=== PATIENT | female | born 1995 | race Caucasian/White ===

== ENCOUNTER 2017-07-11 19:55 | Emergency (ER) | payer OTHER ==
[~2017-07-11] VITALS: Ht 170.1 cm; Wt 90.7 kg
[~2017-07-11 19:55] MED LIST: CIPRO250 MG PO; CLARITIN10 MG PO; COMBIVENT1 ARO IH; FLUVOXAMINE50 MG PO; HYDROCODONE BIT1 T11 PO; MOTRIN600 MG PO; MOTRIN800 MG PO; NKHM; ULTRAM50 MG PO
[2017-07-11 20:55] VITALS: BP 131/69
== END 2017-07-11 21:44 | disposition home or self-care (01) ==
LOC: ED 19:55
DX: S16.1XXA Strain of muscle, fascia and tendon at neck level, initial encounter (principal); V49.9XXA Car occupant (driver) (passenger) injured in unspecified traffic accident, initial encounter; Y93.89 Activity, other specified; Y92.89 Other specified places as the place of occurrence of the external cause; Y99.8 Other external cause status

== ENCOUNTER 2017-10-20 11:22 | Emergency (ER) | payer OTHER ==
[~2017-10-20] VITALS: Ht 157.4 cm; Wt 88.5 kg
[2017-10-20 11:26] VITALS: BP 134/71
[2017-10-20 12:11] LABS: BILIRUBIN NEGATIVE (NEGATIVE); BLOOD NEGATIVE (NEGATIVE); CLARITY CLOUDY (CLEAR); COLOR YELLOW (YELLOW); GLUCOSE NEGATIVE (NEGATIVE); KETONE NEGATIVE (NEGATIVE); LEUKO ESTERASE 2+ (NEGATIVE); NITRITE NEGATIVE (NEGATIVE); SPECIFIC GRAVITY >= 1.030 (1.005-1.030)
[2017-10-20 12:16] LABS: BASO # 0.1 10*3/uL (0.0-0.1); EOS # 0.2 10*3/uL (0.0-0.4); EOS % 2.7 % (1.0-4.0); HEMATOCRIT 39.6 % (37.0-47.0); HEMOGLOBIN 13.6 g/dl (12.0-16.0); LYMPH # 3.1 10*3/uL (1.3-4.4); LYMPH % 37.7 % (27.0-41.0); MEAN CELL VOLUME 93.4 fl (81.0-99.0); MEAN CORPUSCULAR HGB 32.1 pg (27.0-31.0); MEAN CORPUSCULAR HGB CONC 34.3 g/dl (33.0-37.0); MEAN PLATELET VOLUME 9.5 fl (9.6-12.3); MONO # 0.6 10*3/uL (0.1-1.0); MONO % 6.7 % (3.0-9.0); NEUT # 4.2 10*3/uL (2.3-7.9); NEUT % 51.7 % (47.0-73.0); PLATELET COUNT AUTOMATED 417 10*3/uL (130-400); RED BLOOD COUNT 4.24 10*6/uL (4.10-5.10); RED CELL DISTRI WIDTH 12.3 % (0-14.5); WHITE BLOOD COUNT 8.2 10*3/uL (4.8-10.8)
[2017-10-20 12:32] LABS: ALKALINE PHOSPHATASE 63 U/L (45-117); BUN 10 mg/dl (7-24); CHLORIDE 107 mmol/L (98-107); POTASSIUM 3.5 mmol/L (3.5-5.1); SGOT/AST 15 IU/L (3-35); SGPT/ALT 31 U/L (12-78); SODIUM 138 mmol/L (136-145); TOTAL PROTEIN 8.2 gm/dL (6.4-8.2)
[2017-10-20 12:40] LABS: BACTERIA 2+; EPITHELIAL CELLS 30-40; MUCOUS 1+; WBC 16-20 wbc/hpf (0-5)
[2017-10-20] MEDS ORDERED: MACROBID100 M1 PO (13:58)
== END 2017-10-20 14:14 | disposition home or self-care (01) ==
LOC: ED 11:22
PROVIDERS: Nurse Practitioner
DX: O23.41 Unspecified infection of urinary tract in pregnancy, first trimester (principal); O26.891 Other specified pregnancy related conditions, first trimester; K21.9 Gastro-esophageal reflux disease without esophagitis; Z3A.01 Less than 8 weeks gestation of pregnancy

== ENCOUNTER → 2017-10-26 | Outpatient (CLI) | payer OTHER ==
[~2017-10-26] MED LIST changes: +MACROBID100 M1 PO; +PRENATA CHEWAB1 EACH PO
== END | disposition home or self-care (01) ==
LOC: LAB 09:52
DX: Z32.01 Encounter for pregnancy test, result positive (principal)

== ENCOUNTER 2017-10-31 09:02 | Emergency (ER) | payer OTHER ==
[~2017-10-31] VITALS: Ht 157.4 cm; Wt 92.1 kg
[~2017-10-31 09:02] MED LIST changes: -PRENATA CHEWAB1 EACH PO
[2017-10-31 09:04] VITALS: BP 139/77
[2017-10-31] MEDS ORDERED: PRENATA CHEWAB1 EACH PO (09:10)
[2017-10-31 09:32] LABS: BASO # 0.1 10*3/uL (0.0-0.1); BASO % 0.7 % (0.0-1.0); EOS # 0.1 10*3/uL (0.0-0.4); EOS % 1.8 % (1.0-4.0); HEMATOCRIT 36.4 % (37.0-47.0); HEMOGLOBIN 12.4 g/dl (12.0-16.0); MEAN CELL VOLUME 93.1 fl (81.0-99.0); MEAN CORPUSCULAR HGB 31.7 pg (27.0-31.0); MEAN CORPUSCULAR HGB CONC 34.1 g/dl (33.0-37.0); MEAN PLATELET VOLUME 9.3 fl (9.6-12.3); MONO # 0.5 10*3/uL (0.1-1.0); MONO % 7.7 % (3.0-9.0); NEUT # 4.3 10*3/uL (2.3-7.9); NEUT % 60.5 % (47.0-73.0); PLATELET COUNT AUTOMATED 363 10*3/uL (130-400); RED BLOOD COUNT 3.91 10*6/uL (4.10-5.10); RED CELL DISTRI WIDTH 12.1 % (0-14.5)
[2017-10-31 09:41] LABS: BILIRUBIN NEGATIVE (NEGATIVE); BLOOD NEGATIVE (NEGATIVE); CLARITY CLOUDY (CLEAR); COLOR YELLOW (YELLOW); GLUCOSE TRACE (NEGATIVE); KETONE NEGATIVE (NEGATIVE); LEUKO ESTERASE 1+ (NEGATIVE); NITRITE NEGATIVE (NEGATIVE); UROBILINOGEN 0.2 E.U./dl (0.2-1.0)
[2017-10-31 09:48] LABS: BACTERIA 2+; EPITHELIAL CELLS 15-20
[2017-10-31 09:50] LABS: ALBUMIN 3.7 gm/dl (3.1-4.5); ALKALINE PHOSPHATASE 56 U/L (45-117); BUN 10 mg/dl (7-24); CHLORIDE 106 mmol/L (98-107); POTASSIUM 4.2 mmol/L (3.5-5.1); SGOT/AST 8 IU/L (3-35); SGPT/ALT 29 U/L (12-78); SODIUM 138 mmol/L (136-145); TOTAL PROTEIN 7.5 gm/dL (6.4-8.2)
== END 2017-10-31 10:50 | disposition home or self-care (01) ==
LOC: ED 09:02
PROVIDERS: Registered Nurse
DX: O26.891 Other specified pregnancy related conditions, first trimester (principal); K59.00 Constipation, unspecified; R10.32 Left lower quadrant pain; Z3A.01 Less than 8 weeks gestation of pregnancy; Z79.899 Other long term (current) drug therapy

== ENCOUNTER → 2017-11-23 | Outpatient (CLI) | payer OTHER ==
[~2017-11-23] MED LIST changes: +PRENATA CHEWAB1 EACH PO
== END | disposition home or self-care (01) ==
LOC: US 14:52
DX: Z34.91 Encounter for supervision of normal pregnancy, unspecified, first trimester (principal); Z3A.09 9 weeks gestation of pregnancy

== ENCOUNTER 2018-02-08 20:27 | Emergency (ER) | payer OTHER ==
[~2018-02-08] VITALS: Ht 157.4 cm; Wt 96.6 kg
[2018-02-08 20:27] VITALS: BP 143/66
[2018-04-09] MEDS ORDERED: MONISTAT 315 GM V (19:14)
== END 2018-02-08 20:51 | disposition home or self-care (01) ==
LOC: ED 20:27
DX: O36.8120 Decreased fetal movements, second trimester, not applicable or unspecified (principal); Z79.899 Other long term (current) drug therapy

== ENCOUNTER → 2018-02-13 | Outpatient (CLI) | payer OTHER ==
[~2018-02-13] MED LIST changes: +MONISTAT 315 GM V
== END | disposition home or self-care (01) ==
LOC: US 10:55
DX: Z34.02 Encounter for supervision of normal first pregnancy, second trimester (principal); Z3A.21 21 weeks gestation of pregnancy

== ENCOUNTER → 2018-02-26 | Outpatient (CLI) | payer OTHER | END | disposition home or self-care (01) | LOC: US 15:47 | DX: Z33.1 Pregnant state, incidental (principal) ==

== ENCOUNTER → 2018-03-19 | Outpatient (CLI) | payer OTHER | END | disposition home or self-care (01) | LOC: US 06:24 | DX: Z36.88 Encounter for antenatal screening for fetal macrosomia (principal); Z3A.25 25 weeks gestation of pregnancy ==

== ENCOUNTER → 2018-04-30 | Outpatient (CLI) | payer OTHER | END | disposition home or self-care (01) | LOC: US 16:51 | DX: Z34.93 Encounter for supervision of normal pregnancy, unspecified, third trimester (principal) ==

== ENCOUNTER → 2018-06-28 | Outpatient (CLI) | payer OTHER | END | disposition home or self-care (01) | LOC: US 06:30 | DX: Z34.83 Encounter for supervision of other normal pregnancy, third trimester (principal); Z3A.39 39 weeks gestation of pregnancy ==

== ENCOUNTER 2019-03-05 10:28 | Emergency (ER) | payer OTHER ==
[~2019-03-05] VITALS: Ht 157.4 cm; Wt 99.8 kg
[2019-03-05 10:29] VITALS: BP 139/83
[2019-03-05 10:47] LABS: BILIRUBIN NEGATIVE (NEGATIVE); BLOOD TRACE-INTACT (NEGATIVE); CLARITY SL CLOUDY (CLEAR); COLOR YELLOW (YELLOW); GLUCOSE NEGATIVE (NEGATIVE); KETONE NEGATIVE (NEGATIVE); LEUKO ESTERASE NEGATIVE (NEGATIVE); NITRITE NEGATIVE (NEGATIVE); PH 5.5 (5.0-9.0); UROBILINOGEN 0.2 E.U./dl (0.2-1.0)
[2019-03-05 10:56] LABS: BACTERIA 3+; EPITHELIAL CELLS 20-30
== END 2019-03-05 12:05 | disposition home or self-care (01) ==
LOC: ED 10:28
PROVIDERS: Nurse Practitioner Family
DX: N91.2 Amenorrhea, unspecified (principal); Z79.899 Other long term (current) drug therapy

== ENCOUNTER → 2019-03-07 | Outpatient (CLI) | payer OTHER | END | disposition home or self-care (01) | LOC: LAB 08:56 | DX: N93.9 Abnormal uterine and vaginal bleeding, unspecified (principal) ==

== ENCOUNTER → 2019-03-10 | Outpatient (CLI) | payer OTHER | END | disposition home or self-care (01) | LOC: LAB 09:35 | DX: N93.9 Abnormal uterine and vaginal bleeding, unspecified (principal) ==

== ENCOUNTER 2019-06-07 13:24 | Emergency (ER) | payer OTHER ==
[~2019-06-07] VITALS: Ht 157.4 cm; Wt 110.2 kg
[2019-06-07 13:31] VITALS: BP 127/79
[2019-06-07 13:55] LABS: BASO % 0.3 % (0.0-1.0); EOS # 0.1 10*3/uL (0.0-0.4); EOS % 0.9 % (1.0-4.0); HEMATOCRIT 35.8 % (37.0-47.0); HEMOGLOBIN 12.2 g/dl (12.0-16.0); LYMPH # 2.1 10*3/uL (1.3-4.4); LYMPH % 23.9 % (27.0-41.0); MEAN CELL VOLUME 92.7 fl (81.0-99.0); MEAN CORPUSCULAR HGB 31.6 pg (27.0-31.0); MEAN CORPUSCULAR HGB CONC 34.1 g/dl (33.0-37.0); MEAN PLATELET VOLUME 9.9 fl (9.6-12.3); MONO # 0.5 10*3/uL (0.1-1.0); MONO % 5.8 % (3.0-9.0); NEUT # 6.1 10*3/uL (2.3-7.9); NEUT % 68.7 % (47.0-73.0); PLATELET COUNT AUTOMATED 380 10*3/uL (130-400); RED BLOOD COUNT 3.86 10*6/uL (4.10-5.10); RED CELL DISTRI WIDTH 12.7 % (0-14.5); WHITE BLOOD COUNT 8.9 10*3/uL (4.8-10.8)
[2019-06-07 14:11] LABS: ALBUMIN 2.9 gm/dl (3.1-4.5); ALKALINE PHOSPHATASE 73 U/L (45-117); BUN 7 mg/dl (7-24); CHLORIDE 108 mmol/L (98-107); CREATININE 0.49 mg/dL (0.55-1.02); LIPASE 94 U/L (73-393); POTASSIUM 4.2 mmol/L (3.5-5.1); SGOT/AST 7 IU/L (3-35); SGPT/ALT 21 U/L (12-78); SODIUM 138 mmol/L (136-145); TOTAL PROTEIN 7.2 gm/dL (6.4-8.2)
[2019-06-07 14:13] LABS: BILIRUBIN NEGATIVE (NEGATIVE); BLOOD NEGATIVE (NEGATIVE); CLARITY SL CLOUDY (CLEAR); COLOR YELLOW (YELLOW); GLUCOSE NEGATIVE (NEGATIVE); KETONE NEGATIVE (NEGATIVE); LEUKO ESTERASE 1+ (NEGATIVE); NITRITE NEGATIVE (NEGATIVE); PH 8.5 (5.0-9.0); SPECIFIC GRAVITY 1.015 (1.005-1.030); UROBILINOGEN 0.2 E.U./dl (0.2-1.0)
[2019-06-07 14:27] LABS: BACTERIA 3+; EPITHELIAL CELLS TNTC; MUCOUS 1+
== END 2019-06-07 15:00 | disposition home or self-care (01) ==
LOC: ED 13:24
PROVIDERS: Emergency Medicine
DX: O26.892 Other specified pregnancy related conditions, second trimester (principal); R10.32 Left lower quadrant pain; R51 Headache; E66.01 Morbid (severe) obesity due to excess calories; Z3A.17 17 weeks gestation of pregnancy; Z79.899 Other long term (current) drug therapy

== ENCOUNTER → 2019-07-01 | Outpatient (CLI) | payer OTHER | END | disposition home or self-care (01) | LOC: US 16:57 | DX: Z34.82 Encounter for supervision of other normal pregnancy, second trimester (principal); Z3A.21 21 weeks gestation of pregnancy ==

== ENCOUNTER → 2019-09-01 | Outpatient (CLI) | payer OTHER | END | disposition home or self-care (01) | LOC: US 11:00 | DX: Z34.83 Encounter for supervision of other normal pregnancy, third trimester (principal); Z3A.29 29 weeks gestation of pregnancy ==

== ENCOUNTER → 2019-10-21 | Outpatient (CLI) | payer OTHER | END | disposition home or self-care (01) | LOC: US 12:59 | DX: Z34.83 Encounter for supervision of other normal pregnancy, third trimester (principal); Z3A.37 37 weeks gestation of pregnancy ==

== ENCOUNTER 2020-04-08 06:34 | Emergency (ER) | payer OTHER ==
[2020-04-08 06:40] VITALS: BP 133/79
[2020-04-08 07:21] LABS: BASO # 0.1 10*3/uL (0.0-0.1); BASO % 0.8 % (0.0-1.0); EOS # 0.1 10*3/uL (0.0-0.4); EOS % 1.5 % (1.0-4.0); HEMATOCRIT 36.9 % (37.0-47.0); LYMPH # 1.7 10*3/uL (1.3-4.4); LYMPH % 22.9 % (27.0-41.0); MEAN CELL VOLUME 86.8 fl (81.0-99.0); MEAN CORPUSCULAR HGB 28.9 pg (27.0-31.0); MEAN CORPUSCULAR HGB CONC 33.3 g/dl (33.0-37.0); MEAN PLATELET VOLUME 9.4 fl (9.6-12.3); MONO # 0.5 10*3/uL (0.1-1.0); MONO % 6.4 % (3.0-9.0); NEUT # 4.9 10*3/uL (2.3-7.9); NEUT % 68.1 % (47.0-73.0); PLATELET COUNT AUTOMATED 417 10*3/uL (130-400); RED BLOOD COUNT 4.25 10*6/uL (4.10-5.10); RED CELL DISTRI WIDTH 13.4 % (0-14.5); WHITE BLOOD COUNT 7.2 10*3/uL (4.8-10.8)
[2020-04-08 07:38] LABS: ALBUMIN 3.8 gm/dl (3.1-4.5); ALKALINE PHOSPHATASE 75 U/L (45-117); BUN 11 mg/dl (7-24); CHLORIDE 105 mmol/L (98-107); CREATININE 0.61 mg/dL (0.55-1.02); POTASSIUM 3.6 mmol/L (3.5-5.1); SGOT/AST 23 IU/L (3-35); SGPT/ALT 40 U/L (12-78); SODIUM 139 mmol/L (136-145); TOTAL PROTEIN 7.8 gm/dL (6.4-8.2)
[2020-04-08 07:46] LABS: BILIRUBIN Negative (Negative); BLOOD Negative (Negative); CLARITY Clear (Clear); COLOR Yellow (Yellow); GLUCOSE Negative (Negative); KETONE 1+ (Negative); LEUKO ESTERASE Negative (Negative); NITRITE Negative (Negative); UROBILINOGEN 0.2 E.U./dl (0.0-1.0)
[2020-04-08 07:58] LABS: BACTERIA TRACE
[2020-04-08] MEDS ORDERED: TYLENOL325 M1 PO (08:13)
[2020-04-08] MEDS ORDERED: NAPROXEN250 MG PO (08:13)
== END 2020-04-08 08:27 | disposition home or self-care (01) ==
LOC: ED 06:34
PROVIDERS: Emergency Medicine
DX: R10.31 Right lower quadrant pain (principal); Z79.899 Other long term (current) drug therapy

== ENCOUNTER → 2020-04-09 | Outpatient (CLI) | payer OTHER ==
[~2020-04-09] MED LIST changes: +NAPROXEN250 MG PO; +TYLENOL325 M1 PO
== END | disposition home or self-care (01) ==
LOC: US 12:49
PROVIDERS: ATTEND Obstetrics & Gynecology
DX: N83.201 Unspecified ovarian cyst, right side (principal); N94.6 Dysmenorrhea, unspecified; R10.2 Pelvic and perineal pain

== ENCOUNTER 2020-08-06 17:38 | Emergency (ER) | payer OTHER ==
[~2020-08-06] VITALS: Ht 162.5 cm; Wt 95.3 kg
[2020-08-06 18:07] VITALS: BP 148/79
[2020-08-06 19:42] LABS: HEMATOCRIT 44.4 % (37.0-47.0); MEAN CELL VOLUME 90.4 fl (81.0-99.0); MEAN CORPUSCULAR HGB 29.5 pg (27.0-31.0); MEAN CORPUSCULAR HGB CONC 32.7 g/dl (33.0-37.0); MEAN PLATELET VOLUME 9.7 fl (9.6-12.3); PLATELET COUNT AUTOMATED 394 10*3/uL (130-400); RED BLOOD COUNT 4.91 10*6/uL (4.10-5.10); RED CELL DISTRI WIDTH 12.9 % (0-14.5); WHITE BLOOD COUNT 13.4 10*3/uL (4.8-10.8)
[2020-08-06 19:58] LABS: ALBUMIN 3.9 gm/dl (3.1-4.5); ALKALINE PHOSPHATASE 81 U/L (45-117); BUN 13 mg/dl (7-24); CHLORIDE 109 mmol/L (98-107); LIPASE 44 U/L (73-393); POTASSIUM 3.7 mmol/L (3.5-5.1); SGOT/AST 11 IU/L (3-35); SGPT/ALT 30 U/L (12-78); SODIUM 141 mmol/L (136-145); TOTAL PROTEIN 8.5 gm/dL (6.4-8.2)
[2020-08-06 20:18] LABS: PLATELET SUFFICIENCY NORMAL (NORMAL); TOTAL CELLS COUNTED 100 #CELLS
[2020-08-06] MEDS ORDERED: ZOFRAN4 MG PO (21:56)
== END 2020-08-06 21:23 | disposition home or self-care (01) ==
LOC: ED 17:38
PROVIDERS: Physician Assistant
DX: R11.2 Nausea with vomiting, unspecified (principal); R19.7 Diarrhea, unspecified; F32.9 Major depressive disorder, single episode, unspecified; Z79.899 Other long term (current) drug therapy; Z98.890 Other specified postprocedural states

== ENCOUNTER 2021-05-03 17:27 | Emergency (ER) | payer OTHER ==
[~2021-05-03] VITALS: Wt 113.4 kg
[~2021-05-03 17:27] MED LIST changes: +ZOFRAN4 MG PO
[2021-05-03 17:39] VITALS: BP 140/94
[2021-05-03] MEDS ORDERED: AMOXICILLIN500 M2 PO (17:56)
== END 2021-05-03 18:21 | disposition home or self-care (01) ==
LOC: ED 17:27
DX: J02.9 Acute pharyngitis, unspecified (principal); R59.0 Localized enlarged lymph nodes; Z79.899 Other long term (current) drug therapy

== ENCOUNTER → 2021-08-28 | Outpatient (CLI) | payer OTHER ==
[~2021-08-28] MED LIST changes: +AMOXICILLIN500 M2 PO
[2021-08-28 08:34] LABS: BASO # 0.1 10*3/uL (0.0-0.1); BASO % 0.9 % (0.0-1.0); EOS # 0.1 10*3/uL (0.0-0.4); EOS % 2.2 % (1.0-4.0); HEMATOCRIT 37.9 % (37.0-47.0); LYMPH # 1.8 10*3/uL (1.3-4.4); LYMPH % 33.2 % (27.0-41.0); MEAN CELL VOLUME 89.6 fl (81.0-99.0); MEAN CORPUSCULAR HGB 30.5 pg (27.0-31.0); MEAN PLATELET VOLUME 9.5 fl (9.6-12.3); MONO # 0.4 10*3/uL (0.1-1.0); MONO % 7.3 % (3.0-9.0); NEUT # 3.1 10*3/uL (2.3-7.9); NEUT % 56.2 % (47.0-73.0); PLATELET COUNT AUTOMATED 428 10*3/uL (130-400); RED BLOOD COUNT 4.23 10*6/uL (4.10-5.10); RED CELL DISTRI WIDTH 12.8 % (0-14.5); WHITE BLOOD COUNT 5.5 10*3/uL (4.8-10.8)
[2021-08-28 09:55] LABS: BUN 14 mg/dl (7-24); CHLORIDE 107 mmol/L (98-107); SODIUM 137 mmol/L (136-145)
[2021-08-28 10:08] LABS: ALKALINE PHOSPHATASE 78 U/L (45-117); CREATININE 0.61 mg/dL (0.55-1.02); SGOT/AST 17 IU/L (3-35); SGPT/ALT 24 U/L (12-78); TOTAL PROTEIN 7.9 gm/dL (6.4-8.2)
== END | disposition home or self-care (01) ==
LOC: LAB 08:07
PROVIDERS: ATTEND Nurse Practitioner Family
DX: E55.9 Vitamin D deficiency, unspecified (principal); R63.5 Abnormal weight gain; E65 Localized adiposity

== ENCOUNTER 2021-10-03 18:40 | Emergency (ER) | payer OTHER ==
[~2021-10-03] VITALS: Ht 157.4 cm; Wt 115.7 kg
[~2021-10-03 18:40] MED LIST changes: +HYDROCODONE-AC1 EAC1 PO
[2021-10-03 19:52] LABS: BASO # 0.1 10*3/uL (0.0-0.1); BASO % 0.7 % (0.0-1.0); EOS # 0.2 10*3/uL (0.0-0.4); EOS % 2.7 % (1.0-4.0); HEMATOCRIT 37.8 % (37.0-47.0); LYMPH # 2.7 10*3/uL (1.3-4.4); LYMPH % 33.2 % (27.0-41.0); MEAN CELL VOLUME 87.7 fl (81.0-99.0); MEAN CORPUSCULAR HGB 30.4 pg (27.0-31.0); MEAN CORPUSCULAR HGB CONC 34.7 g/dl (33.0-37.0); MEAN PLATELET VOLUME 9.1 fl (9.6-12.3); MONO # 0.6 10*3/uL (0.1-1.0); NEUT # 4.4 10*3/uL (2.3-7.9); PLATELET COUNT AUTOMATED 516 10*3/uL (130-400); RED BLOOD COUNT 4.31 10*6/uL (4.10-5.10); RED CELL DISTRI WIDTH 12.3 % (0-14.5)
[2021-10-03 20:08] LABS: ALKALINE PHOSPHATASE 78 U/L (45-117); BUN 15 mg/dl (7-24); CHLORIDE 106 mmol/L (98-107); CREATININE 0.86 mg/dL (0.55-1.02); POTASSIUM 3.8 mmol/L (3.5-5.1); SGOT/AST 15 IU/L (3-35); SGPT/ALT 29 U/L (12-78); SODIUM 138 mmol/L (136-145)
[2021-10-03 22:23] VITALS: BP 124/78
[2021-10-03 23:30] LABS: BILIRUBIN Negative (Negative); BLOOD 3+ (Negative); CLARITY Cloudy (Clear); COLOR Red (Yellow); GLUCOSE Negative (Negative); KETONE Negative (Negative); LEUKO ESTERASE 1+ (Negative); NITRITE Negative (Negative); PH 5.5 (4.5-8.0); SPECIFIC GRAVITY >= 1.030 (1.001-1.030)
[2021-10-03 23:40] LABS: BACTERIA 1+; EPITHELIAL CELLS 0-2; RBC 51-100 rbc/hpf (0-2)
== END 2021-10-04 02:06 | disposition home or self-care (01) ==
LOC: ED 18:40
PROVIDERS: Emergency Medicine
DX: J02.0 Streptococcal pharyngitis (principal); R00.0 Tachycardia, unspecified; N39.0 Urinary tract infection, site not specified

== ENCOUNTER 2023-04-17 12:27 | Emergency (ER) | payer BC, OTHER ==
[~2023-04-17] VITALS: Ht 157.4 cm; Wt 118.4 kg
[~2023-04-17 12:27] MED LIST changes: +AMOX-CLAV 875-1 EACH PO
[2023-04-17 12:36] VITALS: BP 108/65
[2023-04-17] MEDS ORDERED: PHARMASSURE FO0.4 MG PO (12:37)
[2023-04-17] MEDS ORDERED: PRENATAL MULTI1 EAC3 PO (12:37)
== END 2023-04-17 14:23 | disposition home or self-care (01) ==
LOC: ED 12:27
DX: O26.892 Other specified pregnancy related conditions, second trimester (principal); O99.342 Other mental disorders complicating pregnancy, second trimester; R60.0 Localized edema; F32.A Depression, unspecified; Z90.49 Acquired absence of other specified parts of digestive tract; Z3A.23 23 weeks gestation of pregnancy; Z98.890 Other specified postprocedural states

== ENCOUNTER → 2023-07-09 | Outpatient (CLI) | payer BC, OTHER ==
[~2023-07-09] MED LIST changes: +PHARMASSURE FO0.4 MG PO; +PRENATAL MULTI1 EAC3 PO
== END | disposition home or self-care (01) ==
LOC: CARD 11:07
PROVIDERS: ATTEND Nurse Practitioner Family
DX: R07.89 Other chest pain (principal)

== ENCOUNTER → 2023-10-16 | Outpatient (CLI) | payer BC, OTHER | END | disposition home or self-care (01) | LOC: RAD 09:45 | PROVIDERS: ATTEND Nurse Practitioner Family | DX: M54.50 Low back pain, unspecified (principal); R20.0 Anesthesia of skin; M54.9 Dorsalgia, unspecified; R20.2 Paresthesia of skin ==

== ENCOUNTER 2024-02-01 09:27 | Inpatient (IN) | payer OTHER ==
[~2024-02-01] VITALS: Ht 157.5 cm; Wt 116.3 kg
[2024-02-01 09:32] VITALS: BP 118/67
[2024-02-01 09:41] LABS: BASO # 0.1 10*3/uL (0.0-0.1); EOS # 0.1 10*3/uL (0.0-0.4); EOS % 2.1 % (1.0-4.0); LYMPH # 1.5 10*3/uL (1.3-4.4); LYMPH % 29.5 % (27.0-41.0); MEAN CELL VOLUME 91.4 fl (81.0-99.0); MEAN CORPUSCULAR HGB 29.8 pg (27.0-31.0); MEAN CORPUSCULAR HGB CONC 32.6 g/dl (33.0-37.0); MONO # 0.4 10*3/uL (0.1-1.0); MONO % 7.2 % (3.0-9.0); NEUT # 3.1 10*3/uL (2.3-7.9); PLATELET COUNT AUTOMATED 406 10*3/uL (130-400); RED BLOOD COUNT 3.83 10*6/uL (4.10-5.10); RED CELL DISTRI WIDTH 13.2 % (0-14.5); WHITE BLOOD COUNT 5.2 10*3/uL (4.8-10.8)
[2024-02-01 10:03] LABS: ALKALINE PHOSPHATASE 57 U/L (46-116); BUN 13 mg/dl (9-23); CHLORIDE 106 mmol/L (98-107); LIPASE 25 U/L (12-53); POTASSIUM 3.9 mmol/L (3.4-5.1); SGPT/ALT 22 U/L (5-49); TOTAL PROTEIN 6.8 gm/dL (6.0-8.0)
[2024-02-01 10:04] LABS: B-hCG (QUALITATIVE) NEGATIVE (NEGATIVE)
[2024-02-01 10:22] LABS: BILIRUBIN Negative (Negative); BLOOD Negative (Negative); CLARITY Clear (Clear); COLOR Yellow (Yellow); GLUCOSE Negative (Negative); KETONE Negative (Negative); LEUKO ESTERASE Negative (Negative); NITRITE Negative (Negative); SPECIFIC GRAVITY 1.015 (1.001-1.030); UROBILINOGEN 0.2 E.U./dl (0.0-1.0)
[2024-02-01 10:54] LABS: RBC 0-2 rbc/hpf (0-2)
[2024-02-01] MEDS ORDERED: OXYCODONE HCL (IR) 5 MG TAB PO ONE (12:15)
[2024-02-01] MEDS ORDERED: Ketorolac Tromethamine 15 MG/ML VIAL IV ONE (12:15)
[2024-02-01] MEDS ORDERED: ACETAMINOPHEN 325 MG TAB PO ONE (12:15)
[2024-02-01] MEDS ORDERED: ACETAMINOPHEN 325 MG TAB PO PRN (14:25)
[2024-02-01] MEDS ORDERED: BISACODYL 5 MG TAB PO PRN (14:25)
[2024-02-01] MEDS ORDERED: ACETAMINOPHEN 650 MG SUPP R PRN (14:25)
[2024-02-01] MEDS ORDERED: Ondansetron Hydrochloride 4 MG/2 ML VIAL IV PRN (14:25)
[2024-02-01] MEDS ORDERED: MORPHINE Sulfate 2 MG/ML SYR IV PRN (14:25)
[2024-02-01] MEDS ORDERED: BISACODYL 10 MG SUPP R PRN (14:25)
[2024-02-01] MEDS ORDERED: Acetaminophen/Hydrocodone 5 MG/325 MG TABLET PO PRN ×2 (14:25→16:54)
[2024-02-01] MEDS ORDERED: Magnesium Hydroxide 30 ML UDC PO PRN (14:25)
[2024-02-01] MEDS ORDERED: Acetaminophen/Hydrocodone 5 MG/325 MG TABLET PO SCH (16:00)
[2024-02-01] MEDS ORDERED: LORazepam 2 MG/ML VIAL IV ONE (17:35)
[2024-02-01] MEDS ORDERED: LORazepam 2 MG/ML VIAL IV PRN (17:35)
[2024-02-01] MEDS ORDERED: Dexamethasone Sodium Phospha 4 MG/ML VIAL IV SCH (22:00)
[2024-02-02 06:39] VITALS: BP 116/69
[2024-02-02 06:39] LABS: BASO % 0.1 % (0.0-1.0); HEMATOCRIT 36.5 % (37.0-47.0); LYMPH % 14.8 % (27.0-41.0); MEAN CELL VOLUME 89.7 fl (81.0-99.0); MEAN CORPUSCULAR HGB 30.5 pg (27.0-31.0); MEAN PLATELET VOLUME 9.1 fl (9.6-12.3); MONO # 0.1 10*3/uL (0.1-1.0); MONO % 1.8 % (3.0-9.0); NEUT # 5.6 10*3/uL (2.3-7.9); NEUT % 82.9 % (47.0-73.0); PLATELET COUNT AUTOMATED 480 10*3/uL (130-400); RED BLOOD COUNT 4.07 10*6/uL (4.10-5.10); RED CELL DISTRI WIDTH 13.2 % (0-14.5); WHITE BLOOD COUNT 6.8 10*3/uL (4.8-10.8)
[2024-02-02 07:13] LABS: BUN 14 mg/dl (9-23); CHLORIDE 103 mmol/L (98-107); CHOLESTEROL 186 mg/dL (<200); FREE T4 1.23 ng/dl (0.89-1.76); LDL CHOLESTEROL 120 mg/dL (9-159); POTASSIUM 4.6 mmol/L (3.4-5.1); TRIGLYCERIDES 54 mg/dl (<150)
[2024-02-02 07:28] LABS: VITAMIN D, 25-HYDROXY 21.2 ng/mL (30-100)
[2024-02-02] MEDS ORDERED: BISACODYL 5 MG TAB PO SCH (10:00)
[2024-02-02 15:10] VITALS: BP 98/88
[2024-02-02 16:00] VITALS: BP 98/88
[2024-02-02 16:55] VITALS: BP 134/78
[2024-02-02 20:00] VITALS: BP 123/71
[2024-02-02] MEDS ORDERED: hydrOXYzine pamoate 25 MG CAP PO ONE (22:10)
[2024-02-03] VITALS: BP 128/77
[2024-02-03 08:00] VITALS: BP 117/76
[2024-02-03] MEDS ORDERED: Vitamin D 1,000 IU TAB (25 MCG) PO SCH (10:00)
[2024-02-03 12:00] VITALS: BP 112/78
[2024-02-03] MEDS ORDERED: GABAPENTIN 100 MG CAP PO SCH (14:00)
[2024-02-03 16:00] VITALS: BP 114/71
[2024-02-03 20:00] VITALS: BP 126/68
[2024-02-03] MEDS ORDERED: Melatonin 5 MG TABLET PO PRN (21:20)
[2024-02-04] VITALS: BP 114/56
[2024-02-04 08:00] VITALS: BP 122/72
[2024-02-04] MEDS ORDERED: Enoxaparin Sodium 40 MG/0.4 ML SYR SC SCH (10:00)
[2024-02-04 12:00] VITALS: BP 127/76
[2024-02-04 16:00] VITALS: BP 136/76
[2024-02-04 20:16] VITALS: BP 125/58
[2024-02-05] VITALS: BP 108/58
[2024-02-05 08:00] VITALS: BP 127/75
[2024-02-05 12:00] VITALS: BP 132/72
[2024-02-05] MEDS ORDERED: Meclizine Hydrochloride 12.5 MG TAB PO ONE (15:20)
[2024-02-05 16:00] VITALS: BP 125/73
[2024-02-05 20:00] VITALS: BP 130/64
[2024-02-06] VITALS: BP 118/69
[2024-02-06 08:00] VITALS: BP 123/67
[2024-02-06] MEDS ORDERED: Ondansetron Hydrochloride 4 MG TAB PO PRN (11:25)
[2024-02-06] MEDS ORDERED: LORazepam 0.5 MG TAB PO PRN (11:25)
[2024-02-06 12:00] VITALS: BP 149/81
[2024-02-06] MEDS ORDERED: Acetaminophen/Oxycodone 5 MG/325 MG TABLET PO SCH (12:00)
[2024-02-06] MEDS ORDERED: GABAPENTIN 100 MG CAP PO SCH (14:00)
[2024-02-06 16:00] VITALS: BP 121/68
[2024-02-06 20:00] VITALS: BP 121/66
[2024-02-07] MEDS ORDERED: Cyclobenzaprine Hydrochlorid 10 MG TAB PO ONE (01:15)
[2024-02-07] MEDS ORDERED: Acetaminophen/Oxycodone 5 MG/325 MG TABLET PO SCH (03:00)
[2024-02-07] MEDS ORDERED: Ketorolac Tromethamine 30 MG/ML VIAL IM ONE (06:05)
[2024-02-07 06:27] LABS: BASO # 0.1 10*3/uL (0.0-0.1); BASO % 0.5 % (0.0-1.0); EOS # 0.1 10*3/uL (0.0-0.4); EOS % 1.1 % (1.0-4.0); HEMATOCRIT 38.4 % (37.0-47.0); LYMPH # 4.9 10*3/uL (1.3-4.4); LYMPH % 52.6 % (27.0-41.0); MEAN CELL VOLUME 93.4 fl (81.0-99.0); MEAN CORPUSCULAR HGB 30.2 pg (27.0-31.0); MEAN CORPUSCULAR HGB CONC 32.3 g/dl (33.0-37.0); MEAN PLATELET VOLUME 9.4 fl (9.6-12.3); MONO # 0.7 10*3/uL (0.1-1.0); MONO % 7.4 % (3.0-9.0); NEUT # 3.5 10*3/uL (2.3-7.9); NEUT % 37.4 % (47.0-73.0); PLATELET COUNT AUTOMATED 479 10*3/uL (130-400); RED BLOOD COUNT 4.11 10*6/uL (4.10-5.10); RED CELL DISTRI WIDTH 13.9 % (0-14.5); WHITE BLOOD COUNT 9.3 10*3/uL (4.8-10.8)
[2024-02-07 06:57] LABS: BUN 21 mg/dl (9-23); CHLORIDE 102 mmol/L (98-107)
[2024-02-07 08:00] VITALS: BP 120/67
[2024-02-07 12:00] VITALS: BP 135/72
[2024-02-07 14:00] VITALS: BP 113/50
[2024-02-07] MEDS ORDERED: GABAPENTIN 300 MG CAP PO SCH (14:00)
[2024-02-07 16:00] VITALS: BP 119/55
[2024-02-07 20:00] VITALS: BP 131/65
[2024-02-08] VITALS: BP 121/70
[2024-02-08 02:28] LABS: BILIRUBIN Negative (Negative); BLOOD Negative (Negative); CLARITY Clear (Clear); COLOR Yellow (Yellow); GLUCOSE Negative (Negative); KETONE Negative (Negative); LEUKO ESTERASE Negative (Negative); NITRITE Negative (Negative); PH 5.5 (4.5-8.0); UROBILINOGEN 0.2 E.U./dl (0.0-1.0)
[2024-02-08 02:39] LABS: EPITHELIAL CELLS 0-2
[2024-02-08 06:25] LABS: BASO # 0.1 10*3/uL (0.0-0.1); BASO % 0.7 % (0.0-1.0); EOS # 0.2 10*3/uL (0.0-0.4); EOS % 2.3 % (1.0-4.0); HEMATOCRIT 37.1 % (37.0-47.0); LYMPH # 3.6 10*3/uL (1.3-4.4); LYMPH % 48.8 % (27.0-41.0); MEAN CELL VOLUME 94.4 fl (81.0-99.0); MEAN CORPUSCULAR HGB CONC 31.8 g/dl (33.0-37.0); MEAN PLATELET VOLUME 9.3 fl (9.6-12.3); MONO # 0.6 10*3/uL (0.1-1.0); MONO % 8.4 % (3.0-9.0); NEUT # 2.9 10*3/uL (2.3-7.9); NEUT % 39.1 % (47.0-73.0); PLATELET COUNT AUTOMATED 437 10*3/uL (130-400); RED BLOOD COUNT 3.93 10*6/uL (4.10-5.10); RED CELL DISTRI WIDTH 14.2 % (0-14.5); WHITE BLOOD COUNT 7.3 10*3/uL (4.8-10.8)
[2024-02-08 06:26] LABS: ALKALINE PHOSPHATASE 54 U/L (46-116); BUN 22 mg/dl (9-23); CHLORIDE 104 mmol/L (98-107); POTASSIUM 4.2 mmol/L (3.4-5.1); SGPT/ALT 44 U/L (5-49); TOTAL PROTEIN 6.1 gm/dL (6.0-8.0)
[2024-02-08 08:00] VITALS: BP 124/65
[2024-02-08 12:00] VITALS: BP 129/69
[2024-02-08 16:00] VITALS: BP 133/70
[2024-02-08 20:00] VITALS: BP 136/80
[2024-02-09] VITALS: BP 116/61
[2024-02-09 06:21] LABS: BASO # 0.1 10*3/uL (0.0-0.1); BASO % 0.8 % (0.0-1.0); EOS # 0.2 10*3/uL (0.0-0.4); EOS % 2.5 % (1.0-4.0); LYMPH # 3.2 10*3/uL (1.3-4.4); LYMPH % 50.9 % (27.0-41.0); MEAN CELL VOLUME 93.3 fl (81.0-99.0); MEAN CORPUSCULAR HGB 30.8 pg (27.0-31.0); MEAN CORPUSCULAR HGB CONC 33.1 g/dl (33.0-37.0); MEAN PLATELET VOLUME 9.3 fl (9.6-12.3); MONO # 0.5 10*3/uL (0.1-1.0); MONO % 7.5 % (3.0-9.0); NEUT # 2.4 10*3/uL (2.3-7.9); NEUT % 37.7 % (47.0-73.0); PLATELET COUNT AUTOMATED 416 10*3/uL (130-400); RED BLOOD COUNT 3.86 10*6/uL (4.10-5.10); RED CELL DISTRI WIDTH 14.2 % (0-14.5); WHITE BLOOD COUNT 6.4 10*3/uL (4.8-10.8)
[2024-02-09 08:00] VITALS: BP 138/54
[2024-02-09 12:00] VITALS: BP 130/81
[2024-02-09 16:00] VITALS: BP 127/75
[2024-02-09 20:00] VITALS: BP 122/77
[2024-02-09] MEDS ORDERED: PREPARATION H SRF/SHARK LIVER 1 OZ TUBE R ONE (20:30)
[2024-02-10] VITALS: BP 100/54
[2024-02-10 08:00] VITALS: BP 134/76
[2024-02-10] MEDS ORDERED: NEURONTIN300 MG PO (11:39)
[2024-02-10] MEDS ORDERED: VITAMIN D350 MC3 PO (11:39)
[2024-02-10] MEDS ORDERED: OXYCODONE-ACET1 EAC3 PO (11:39)
[2024-02-10 12:00] VITALS: BP 132/70
[2024-02-10 16:00] VITALS: BP 143/75
[2024-02-11] MEDS ORDERED: OXYCODONE-ACET1 EAC3 PO (11:08)
== END 2024-02-10 18:05 | disposition home or self-care (01) | DRG 342 ==
LOC: ED 09:27 → 4E 13:02 → EDHOLD 13:02 → 4E 02-02 14:13
PROVIDERS: Emergency Medicine; Student in an Organized Health Care Education/Training Program; ADMIT Internal Medicine; ATTEND Internal Medicine
DX: S52.252A Displaced comminuted fracture of shaft of ulna, left arm, initial encounter for closed fracture (principal); E87.1 Hypo-osmolality and hyponatremia; D64.9 Anemia, unspecified; D75.839 Thrombocytosis, unspecified; E55.9 Vitamin D deficiency, unspecified; V89.2XXA Person injured in unspecified motor-vehicle accident, traffic, initial encounter; Y93.89 Activity, other specified; Y92.89 Other specified places as the place of occurrence of the external cause; Y99.8 Other external cause status

== ENCOUNTER 2024-02-14 12:28 | Inpatient (IN) | payer OTHER ==
[~2024-02-14] VITALS: Ht 157.4 cm; Wt 117.0 kg
[~2024-02-14 12:28] MED LIST changes: +NEURONTIN300 MG PO; +OXYCODONE-ACET1 EAC3 PO; +VITAMIN D350 MC3 PO
[2024-02-14 12:40] VITALS: BP 138/77
[2024-02-14 13:33] LABS: BASO # 0.1 10*3/uL (0.0-0.1); BASO % 0.7 % (0.0-1.0); EOS # 0.1 10*3/uL (0.0-0.4); EOS % 0.9 % (1.0-4.0); LYMPH # 1.6 10*3/uL (1.3-4.4); LYMPH % 23.7 % (27.0-41.0); MEAN CELL VOLUME 92.9 fl (81.0-99.0); MEAN CORPUSCULAR HGB 29.8 pg (27.0-31.0); MEAN CORPUSCULAR HGB CONC 32.1 g/dl (33.0-37.0); MEAN PLATELET VOLUME 9.1 fl (9.6-12.3); MONO # 0.3 10*3/uL (0.1-1.0); MONO % 4.8 % (3.0-9.0); NEUT # 4.8 10*3/uL (2.3-7.9); NEUT % 69.8 % (47.0-73.0); PLATELET COUNT AUTOMATED 385 10*3/uL (130-400); RED BLOOD COUNT 4.09 10*6/uL (4.10-5.10); RED CELL DISTRI WIDTH 13.1 % (0-14.5); WHITE BLOOD COUNT 6.8 10*3/uL (4.8-10.8)
[2024-02-14 13:56] LABS: ALKALINE PHOSPHATASE 67 U/L (46-116); BUN 9 mg/dl (9-23); CHLORIDE 108 mmol/L (98-107); POTASSIUM 3.7 mmol/L (3.4-5.1); SGPT/ALT 29 U/L (5-49); TOTAL PROTEIN 7.3 gm/dL (6.0-8.0)
[2024-02-14] MEDS ORDERED: Ketorolac Tromethamine 15 MG/ML VIAL IV ONE (14:10)
[2024-02-14] MEDS ORDERED: METHOCARBAMOL 500 MG TAB PO ONE (14:15)
[2024-02-14] MEDS ORDERED: methylPREDNISolone sod succ 125 MG VIAL IV ONE (14:15)
[2024-02-14] MEDS ORDERED: Acetaminophen/Hydrocodone 5 MG/325 MG TABLET PO PRN (15:00)
[2024-02-14] MEDS ORDERED: BISACODYL 5 MG TAB PO PRN (15:00)
[2024-02-14] MEDS ORDERED: ACETAMINOPHEN 325 MG TAB PO PRN (15:00)
[2024-02-14] MEDS ORDERED: Ondansetron Hydrochloride 4 MG/2 ML VIAL IV PRN (15:00)
[2024-02-14] MEDS ORDERED: Cyclobenzaprine Hydrochlorid 10 MG TAB PO PRN (15:05)
[2024-02-14 15:52] VITALS: BP 115/59
[2024-02-14] MEDS ORDERED: SODIUM CHLORIDE 0.9% 10 ML VIAL IV SCH (16:15)
[2024-02-14] MEDS ORDERED: SODIUM CHLORIDE 0.9% 1,000 ML IV SCH (16:35)
[2024-02-14] MEDS ORDERED: TEMAZEPAM 15 MG CAP PO ONE (19:50)
[2024-02-14 21:40] VITALS: BP 129/66
[2024-02-14] MEDS ORDERED: GABAPENTIN 300 MG CAP PO SCH (22:00)
[2024-02-14] MEDS ORDERED: methylPREDNISolone sod succ 125 MG VIAL IV SCH (22:00)
[2024-02-15] VITALS: BP 122/68
[2024-02-15 07:02] VITALS: BP 110/63
[2024-02-15] MEDS ORDERED: Cholecalciferol 2,000 UNIT TABLET (50 MCG) PO SCH (10:00)
[2024-02-15] MEDS ORDERED: Enoxaparin Sodium 40 MG/0.4 ML SYR SC SCH (10:00)
[2024-02-15] MEDS ORDERED: Cyclobenzaprine Hydrochlorid 10 MG TAB PO SCH (10:00)
[2024-02-15] MEDS ORDERED: Ketorolac Tromethamine 30 MG/ML VIAL IV SCH (10:00)
[2024-02-15] MEDS ORDERED: GABAPENTIN 400 MG CAP PO SCH (14:00)
[2024-02-15 17:40] VITALS: BP 109/55
[2024-02-15 20:00] VITALS: BP 138/74
[2024-02-15] MEDS ORDERED: LIDOCAINE 4% PATCH T ONE (21:15)
[2024-02-16 00:19] VITALS: BP 114/63
[2024-02-16 08:00] VITALS: BP 117/56
[2024-02-16] MEDS ORDERED: LORazepam 2 MG/ML VIAL IV ONE (09:50)
[2024-02-16] MEDS ORDERED: Cyclobenzaprine Hydrochlorid 10 MG TAB PO PRN (14:03)
[2024-02-16 20:00] VITALS: BP 140/89
[2024-02-16] MEDS ORDERED: hydrOXYzine pamoate 25 MG CAP PO ONE (23:25)
[2024-02-17] VITALS: BP 134/70
[2024-02-17 08:00] VITALS: BP 152/72
[2024-02-17] MEDS ORDERED: VITAMIN D350 MCG PO (11:22)
[2024-02-17] MEDS ORDERED: CYCLOBENZAPRINE10 MG PO (11:22)
[2024-02-17 16:00] VITALS: BP 148/77
== END 2024-02-17 18:15 | disposition home or self-care (01) | DRG 552 ==
LOC: ED 12:28 → 4E 14:24 → EDHOLD 14:24 → 4E 02-15 16:38
PROVIDERS: Internal Medicine; ADMIT Internal Medicine; ATTEND Internal Medicine
DX: M43.16 Spondylolisthesis, lumbar region (principal); E87.1 Hypo-osmolality and hyponatremia; R45.851 Suicidal ideations; Z68.42 Body mass index [BMI] 45.0-49.9, adult; R26.2 Difficulty in walking, not elsewhere classified; R62.7 Adult failure to thrive; F43.21 Adjustment disorder with depressed mood; F43.0 Acute stress reaction; F32.A Depression, unspecified; M54.9 Dorsalgia, unspecified; M48.061 Spinal stenosis, lumbar region without neurogenic claudication; S52.252D Displaced comminuted fracture of shaft of ulna, left arm, subsequent encounter for closed fracture with routine healing; X58.XXXD Exposure to other specified factors, subsequent encounter

== ENCOUNTER → 2024-02-19 | Outpatient (CLI) | payer OTHER ==
[~2024-02-19] MED LIST changes: +CYCLOBENZAPRINE10 MG PO; +VITAMIN D350 MCG PO
== END | disposition home or self-care (01) ==
LOC: ORTHO 01:47
PROVIDERS: ATTEND Orthopaedic Surgery
DX: S52.252D Displaced comminuted fracture of shaft of ulna, left arm, subsequent encounter for closed fracture with routine healing (principal); X58.XXXD Exposure to other specified factors, subsequent encounter

== ENCOUNTER → 2024-03-11 | Outpatient (CLI) | payer OTHER | END | disposition home or self-care (01) | LOC: ORTHO 03:22 | PROVIDERS: ATTEND Orthopaedic Surgery | DX: S52.252D Displaced comminuted fracture of shaft of ulna, left arm, subsequent encounter for closed fracture with routine healing (principal); X58.XXXD Exposure to other specified factors, subsequent encounter ==